=== PATIENT | female | born 1975 | race Two or more races ===

== ENCOUNTER 2016-07-24 18:22 | Emergency (ER) | payer MEDICAID ==
[~2016-07-24] VITALS: Ht 172.7 cm; Wt 90.7 kg
[2016-07-24 19:23] LABS: Albumin 3.9 g/dL (3.4-5.0); Anion Gap 10 (5-15); Aspartate Aminotransferase 10 U/L (15-37); BUN/Creatinine Ratio 17.4; Blood Urea Nitrogen 16 mg/dL (7-18); Calcium 8.9 mg/dL (8.5-10.1); Carbon Dioxide 23 mmol/L (21-32); Chloride 110 mmol/L (98-107); GFR African American 87 mL/min; GFR Non-African American 72 mL/min; Glucose 106 mg/dL (74-106); Potassium 3.9 mmol/L (3.5-5.1); Sodium 143 mmol/L (136-145)
[2016-07-24 19:24] LABS: Basophils # (auto) 0.1 uL; Basophils % (auto) 0.5 % (0.0-2.0); DEFINITIVE VIEW TRANSMISSION; Eosinophils # (auto) 0.1 uL; Eosinophils % (auto) 0.5 % (0.0-7.0); Lymphocytes # (auto) 2.1 uL; Lymphocytes % (auto) 17.9 % (10.0-50.0); Mean Corpuscular Hemoglobin 22.6 pg (28.0-32.0); Mean Corpuscular Hgb Conc. 32.4 g/dL (32.0-36.0); Mean Corpuscular Volume 69.8 fL (80.0-100.0); Mean Platelet Volume 8.2 fL (7.4-10.4); Monocytes # (auto) 0.6 uL; Monocytes % (auto) 5.5 % (0.0-12.0); Neutrophils # (auto) 8.7 uL; Neutrophils % (auto) 75.6 % (37.0-80.0); Platelet Count (auto) 391 10^3/uL (140-450); White Blood Cell 11.6 10^3/uL (4.4-10.8)
[2016-07-24 19:27] LABS: Red Cell Distribution Width 22.3 % (11.6-16.0)
[2016-07-24 19:28] LABS: Alkaline Phosphatase 67 U/L (45-117); Bilirubin, Total 0.3 mg/dL (0.2-1.0); Total Protein 7.4 g/dL (6.4-8.2)
[2016-07-24 20:12] LABS: Anisocytosis Moderate; Hypochromia Moderate; Platelet Estimate Adequate
[2016-07-24 20:13] LABS: Ovalocytes FEW; Tear Drop Cells FEW
[2016-07-24 20:54] VITALS: BP 110/70
[2016-07-24] MEDS ORDERED: KETOROLAC TROMETH 60MG/2ML VIAL IM ONE (21:00)
== END 2016-07-24 22:19 | disposition home or self-care (01) ==
LOC: ER 18:39
DX: R07.89 Other chest pain (principal); R06.02 Shortness of breath; F12.10 Cannabis abuse, uncomplicated; Z88.6 Allergy status to analgesic agent
CPT/HCPCS: 36415; 71010; 80053; 84484; 84702; 85025; 85379; 93005; 96372; 99285; J1885